=== PATIENT | female | born 1975 | race American Indian/Alaskan Native ===

== ENCOUNTER 2018-03-01 01:49 | Emergency (ER) | payer SELFPAY ==
[2018-03-01 03:43] LABS: Basophils # (Auto) 0.1 K/mm3 (0.0-0.1); Basophils % (Auto) 0.9 % (0.0-1.8); Eosinophils % (Auto) 0.1 % (0.0-4.3); Hematocrit 36.6 % (30.3-42.9); Hemoglobin 12.2 gm/dl (10.1-14.3); Lymphocytes # (Auto) 1.1 K/mm3 (1.2-5.4); Lymphocytes % (Auto) 10.8 % (13.4-35.0); Mean Corpuscular HGB Conc 33 % (30-34); Mean Corpuscular Volume 72 fl (79-97); Monocytes # (Auto) 0.4 K/mm3 (0.0-0.8); Monocytes % (Auto) 4.2 % (0.0-7.3); Platelet Count 368 K/mm3 (140-440); Red Blood Count 5.11 M/mm3 (3.65-5.03); Red Cell Distribution Width 19.8 % (13.2-15.2)
[2018-03-01 03:49] LABS: Mean Corpuscular Hemoglobin 24 pg (28-32)
[2018-03-01 03:53] LABS: BUN/Creatinine Ratio 18; Blood Urea Nitrogen 9 mg/dL (7-17); Calcium 9.2 mg/dL (8.4-10.2); Hemolysis Index 27; Lipase 24 units/L (13-60)
[2018-03-01 05:27] LABS: Bilirubin,Urine NEG (Negative); Blood,Urine NEG (Negative); Color,Urine Yellow (Yellow); Mucus,Urine FEW /HPF; Urobilinogen,Urine < 2.0 mg/dL (<2.0)
[2018-03-01] MEDS ORDERED: ZOFRAN IV ONE (08:42)
[2018-03-01] MEDS ORDERED: NACL 0.9% 1000 ML 1,000 ML IV ONE (08:42)
--- NOTE | 2018-03-01 09:57 | Emergency Department Report ---
ED General Adult HPI - General Chief complaint: Nausea/Vomiting/Diarrhea Stated complaint: NAUSEA,VOMITING,STOMACH PAIN,SOB Time Seen by Provider: 03/01/18 09:00 Source: patient Mode of arrival: Ambulatory Limitations: No Limitations - History of Present Illness Initial comments: Patient states "I ate a bad slice of pizza yesterday". She vomited at about 10 PM last night and had diarrhea. Both symptoms have essentially resolved although she does have some residual nausea. She states incidentally that she has not taken her metformin for 2 weeks. She denies fever or chills. She denies abdominal pain. -: Gradual Severity scale (0 -10): 0 Improves with: none Worsens with: none Associated Symptoms: denies other symptoms, nausea/vomiting (and diarrhea) Treatments Prior to Arrival: none - Related Data Previous Rx's Medication Instructions Recorded Last Taken Type Ondansetron [Zofran Odt] 4 mg PO Q6HRT PRN #7 tab.rapdis 03/01/18 Unknown Rx Allergies Allergy/AdvReac Type Severity Reaction Status Date / Time No Known Allergies Allergy Unverified 03/01/18 03:06 ED Review of Systems ROS: Stated complaint: NAUSEA,VOMITING,STOMACH PAIN,SOB Other details as noted in HPI Constitutional: denies: chills, fever Eyes: denies: eye pain, eye discharge, vision change ENT: denies: ear pain, throat pain Respiratory: denies: cough, shortness of breath, wheezing Cardiovascular: denies: chest pain, palpitations Endocrine: no symptoms reported Gastrointestinal: nausea, vomiting, diarrhea. denies: abdominal pain Genitourinary: denies: urgency, dysuria, discharge Musculoskeletal: denies: back pain, joint swelling, arthralgia Skin: denies: rash, lesions Neurological: denies: headache, weakness, paresthesias Psychiatric: denies: anxiety, depression Hematological/Lymphatic: denies: easy bleeding, easy bruising ED Past Medical Hx - Past Medical History Previous Medical History?: Yes Hx Diabetes: Yes Additional medical history: PCOS - Surgical History Past Surgical History?: Yes Additional Surgical History: Csection, Tubal Ligation - Social History Smoking Status: Never Smoker Substance Use Type: None - Medications Home Medications: Home Medications Medication Instructions Recorded Confirmed Last Taken Type Ondansetron [Zofran Odt] 4 mg PO Q6HRT PRN #7 tab.rapdis 04/24/18 Unknown Rx ED Physical Exam - General Limitations: No Limitations General appearance: alert, in no apparent distress - Head Head exam: Present: atraumatic, normocephalic - Eye Eye exam: Present: normal appearance, PERRL, EOMI. Absent: scleral icterus - ENT ENT exam: Present: mucous membranes moist - Neck Neck exam: Present: normal inspection. Absent: tenderness, meningismus - Respiratory Respiratory exam: Present: normal lung sounds bilaterally. Absent: respiratory distress - Cardiovascular Cardiovascular Exam: Present: regular rate, normal rhythm. Absent: systolic murmur, diastolic murmur, rubs, gallop - GI/Abdominal GI/Abdominal exam: Present: soft, normal bowel sounds. Absent: distended, tenderness, guarding, rebound, rigid - Extremities Exam Extremities exam: Present: normal inspection - Back Exam Back exam: Present: normal inspection - Neurological Exam Neurological exam: Present: alert, oriented X3, CN II-XII intact. Absent: motor sensory deficit - Psychiatric Psychiatric exam: Present: normal affect, normal mood - Skin Skin exam: Present: warm, dry, intact, normal color. Absent: rash ED Course Vital Signs 03/01/18 03/01/18 03/01/18 01:50 03:09 08:35 Temperature 98.4 F 98.4 F 98.4 F Pulse Rate 95 H 95 H 79 Respiratory 20 20 18 Rate Blood Pressure 123/104 123/104 Blood Pressure 133/95 [Right] O2 Sat by Pulse 100 100 98 Oximetry 03/01/18 08:36 Temperature Pulse Rate Respiratory 18 Rate Blood Pressure Blood Pressure [Right] O2 Sat by Pulse Oximetry ED Medical Decision Making - Lab Data Result diagrams: 03/01/18 03:24 03/01/18 03:24 Critical care attestation.: If time is entered above; I have spent that time in minutes in the direct care of this critically ill patient, excluding procedure time. ED Disposition Clinical Impression: Gastroenteritis Disposition: DC-01 TO HOME OR SELFCARE Is pt being admited?: No Does the pt Need Aspirin: No Condition: Stable Instructions: Gastroenteritis (ED) Additional Instructions: Return any acute change or worsening symptoms. Follow up with a primary care provider. Rx needed for nausea. Symptoms should be self-limiting. Prescriptions: Ondansetron [Zofran Odt] 4 mg PO Q6HRT PRN #7 tab.rapdis PRN Reason: Nausea Referrals: PRIMARY CARE, [Primary Care Provider] - 3-5 Days [facility] [Provider Group] - 3-5 Days Time of Disposition: 09:58
[2018-03-01] MEDS ORDERED: ZOFRAN ODT PO ONE (10:00)
[2018-03-01 10:20] VITALS: BP 128/76
== END 2018-03-01 10:05 | disposition home or self-care (01) ==
LOC: EDBD 01:49 → ED 01:49
DX: K52.9 Noninfective gastroenteritis and colitis, unspecified (principal); E11.9 Type 2 diabetes mellitus without complications; Z98.51 Tubal ligation status
CPT/HCPCS: 36415; 80048; 81001; 82805; 82962; 83690; 85025; 96361; 96374; 99284; J2405; J7030